=== PATIENT | male | born 1985 | race Hispanic/Latino ===

== ENCOUNTER 2019-06-29 07:46 | Inpatient (IN) | payer SELFPAY ==
[~2019-06-29] VITALS: Ht 170.2 cm; Wt 101.6 kg
[2019-06-29] MEDS ORDERED: ONDANSETRON HCL 4 MG/2 ML VIAL ONE (08:47)
[2019-06-29] MEDS ORDERED: MORPHINE SULFATE 4 MG/1ML SYG ONE ×2 (08:47→13:06)
[2019-06-29] MEDS ORDERED: SODIUM CHLORIDE 0.9% 1000ML 1,000 ML IV ONE ×2 (08:48→13:38)
[2019-06-29 09:06] LABS: BASOPHILS % (AUTO) 0.6 % (0.0-5.0); EOSINOPHILS % (AUTO) 3.9 % (0.0-8.0); LYMPHOCYTES % (AUTO) 23.6 % (21.0-51.0); MEAN CORPUSCULAR HEMOGLOBIN 30.7 pg (27.0-33.0); MEAN CORPUSCULAR HGB CONC 35.6 g/dL (32.0-36.0); MEAN CORPUSCULAR VOLUME 86.3 fL (79-99); MONOCYTES % (AUTO) 10.5 % (3.0-13.0); NEUTROPHILS % (AUTO) 61.4 % (40.0-77.0); NUCLEATED RED BLOOD CELLS 0.1 % (0.0-0.19); PLATELET COUNT (AUTO) 285 K/uL (130-400); RED BLOOD CELL COUNT(AUTO) 4.86 MIL/uL (4.50-6.20); RED CELL DISTRIBUTION WIDTH 12.9 % (11.0-15.5); WHITE BLOOD COUNT (AUTO) 8.6 K/uL (4.8-10.8)
[2019-06-29 09:18] LABS: INR 0.99 (0.85-1.15); PARTIAL THROMBOPLASTIN TIME 25.6 SEC (26.3-35.5); POTASSIUM 3.3 mmol/L (3.5-5.1); PROTHROMBIN TIME 10.4 SEC (9.6-11.6)
[2019-06-29 09:24] LABS: ALBUMIN 3.7 g/dL (3.5-5.0); BILIRUBIN,TOTAL 0.4 mg/dL (0.2-1.0); CRP QUANTITATIVE 3.6 mg/L (0.00-9.0); TOTAL PROTEIN, SERUM 7.6 g/dL (6.0-8.3)
[2019-06-29 11:23] LABS: ERYTHROCYTE SEDIMENTATION RATE 6 MM/HR (0-15)
[2019-06-29] MEDS ORDERED: IOHEXOL-350 75 ML VIAL IV ONE (11:24)
[2019-06-29] MEDS ORDERED: ZOSYN 3.375GM+NS 50ML 50 ML IV ONE (13:38)
[2019-06-29] MEDS ORDERED: VANCOMYCIN 1GM+NS 250ML 500 ML IV ONE (14:06)
[2019-06-29] MEDS ORDERED: VANCOMYCIN PROTOCOL PER PHARMACY IV SCH (16:15)
[2019-06-29] MEDS ORDERED: POTASSIUM CHLORIDE 20MEQ/100ML 100 ML IV PRN (16:30)
[2019-06-29] MEDS ORDERED: POTASSIUM CHLORIDE 10% ELIXIR 20 MEQ/15 ML UDCUP PO PRN (16:30)
[2019-06-29] MEDS ORDERED: ONDANSETRON HCL 4 MG/2 ML VIAL IV PRN (16:30)
[2019-06-29] MEDS ORDERED: LIDOCAINE HCL-MPF 1% 2ML VIAL IV PRN (16:30)
[2019-06-29] MEDS ORDERED: HYDROCODONE/ACETAMINOPHEN 5/325 MG TAB PO PRN (16:30)
[2019-06-29] MEDS ORDERED: ACETAMINOPHEN 325 MG TAB PO PRN (16:30)
[2019-06-29 17:30] VITALS: BP 157/92
[2019-06-29 19:30] VITALS: BP 137/66
[2019-06-29] MEDS ORDERED: COMPOUND IV REFRIGERATED 1 EACH IVSOLN MISC PRN (21:00)
[2019-06-29] MEDS: ZOSYN 3.375GM+NS 50ML 50 ML IV SCH (21:50)
[2019-06-29] MEDS: VANCOMYCIN 1.5 GM in SODIUM CHLORIDE 0.9% 250 ML IV SCH (21:50)
[2019-06-29] MEDS: POTASSIUM CHLORIDE 20 MEQ ERTAB PO PRN ×2 (21:51→22:56)
[2019-06-29] MEDS: FAMOTIDINE 20MG TAB 20 MG TAB PO SCH (21:51)
[2019-06-29 23:30] VITALS: BP 132/84
[2019-06-30] MEDS: POTASSIUM CHLORIDE 20 MEQ ERTAB PO PRN ×5 (00:12→15:09)
[2019-06-30 04:03] VITALS: BP 107/51
[2019-06-30] MEDS: ZOSYN 3.375GM+NS 50ML 50 ML IV SCH ×3 (05:53→20:39)
[2019-06-30 06:03] LABS: BASOPHILS % (AUTO) 0.5 % (0.0-5.0); EOSINOPHILS % (AUTO) 4.9 % (0.0-8.0); HEMATOCRIT 38.3 % (42-54); LYMPHOCYTES % (AUTO) 21.5 % (21.0-51.0); MEAN CORPUSCULAR HEMOGLOBIN 30.5 pg (27.0-33.0); MEAN CORPUSCULAR HGB CONC 35.2 g/dL (32.0-36.0); MEAN CORPUSCULAR VOLUME 86.7 fL (79-99); MONOCYTES % (AUTO) 10.5 % (3.0-13.0); NEUTROPHILS % (AUTO) 62.6 % (40.0-77.0); PLATELET COUNT (AUTO) 256 K/uL (130-400); RED BLOOD CELL COUNT(AUTO) 4.41 MIL/uL (4.50-6.20); RED CELL DISTRIBUTION WIDTH 13.1 % (11.0-15.5); WHITE BLOOD COUNT (AUTO) 8.1 K/uL (4.8-10.8)
[2019-06-30 06:12] LABS: POTASSIUM 3.3 mmol/L (3.5-5.1)
[2019-06-30 07:30] VITALS: BP 104/66
[2019-06-30] MEDS: FAMOTIDINE 20MG TAB 20 MG TAB PO SCH ×2 (09:00→20:35)
[2019-06-30] MEDS: VANCOMYCIN 1.5 GM in SODIUM CHLORIDE 0.9% 250 ML IV SCH ×2 (09:00→20:35)
[2019-06-30] MEDS: ENOXAPARIN SODIUM 30 MG/0.3 ML SQ SCH (09:01)
--- NOTE | 2019-06-30 10:51 | NUR ---
DCP CM met with pt discussed dc plans. Pt is independent prior to admission, lives at home alone, girlfriend lives close by. Denies any equipments/services. Feels safe to go back home, still drives and works, girlfriend able to assist with transportation as necessary. DC plan to home once stable. CM to cont to follow up. Addendum: 06/30/19 at 1052 by JOSTIN CHAVEZ LVN CM Amended: Links added.
[2019-06-30 11:00] VITALS: BP 114/65
[2019-06-30] MEDS ORDERED: MAGNESIUM 2GM PREMIX 50ML 50 ML IV PRN (12:45)
[2019-06-30 16:00] VITALS: BP 122/68
[2019-06-30 21:05] VITALS: BP 139/74
[2019-07-01] VITALS: BP 124/69
[2019-07-01 04:10] VITALS: BP 121/64
[2019-07-01 04:31] LABS: EOSINOPHILS % (AUTO) 5.1 % (0.0-8.0); HEMATOCRIT 39.9 % (42-54); LYMPHOCYTES % (AUTO) 24.9 % (21.0-51.0); MEAN CORPUSCULAR HEMOGLOBIN 29.9 pg (27.0-33.0); MEAN CORPUSCULAR HGB CONC 34.6 g/dL (32.0-36.0); MEAN CORPUSCULAR VOLUME 86.5 fL (79-99); MONOCYTES % (AUTO) 9.1 % (3.0-13.0); NEUTROPHILS % (AUTO) 59.9 % (40.0-77.0); PLATELET COUNT (AUTO) 274 K/uL (130-400); RED BLOOD CELL COUNT(AUTO) 4.61 MIL/uL (4.50-6.20); RED CELL DISTRIBUTION WIDTH 12.7 % (11.0-15.5)
[2019-07-01 04:53] LABS: CREATININE 1.1 mg/dL (0.5-1.5); POTASSIUM 3.7 mmol/L (3.5-5.1)
[2019-07-01] MEDS: ZOSYN 3.375GM+NS 50ML 50 ML IV SCH ×2 (05:41→13:08)
[2019-07-01 08:00] VITALS: BP 121/47
[2019-07-01] MEDS: VANCOMYCIN 1.5 GM in SODIUM CHLORIDE 0.9% 250 ML IV SCH (09:06)
[2019-07-01] MEDS: ENOXAPARIN SODIUM 30 MG/0.3 ML SQ SCH (09:07)
[2019-07-01] MEDS: FAMOTIDINE 20MG TAB 20 MG TAB PO SCH (09:07)
[2019-07-01] MEDS ORDERED: VANCOMYCIN 1.75 GM in SODIUM CHLORIDE 0.9% 250 ML IV SCH (10:27)
[2019-07-01 11:29] VITALS: BP 131/74
[2019-07-01 16:00] VITALS: BP 127/61
--- NOTE | 2019-07-01 20:06 | NUR ---
Pt d/c home safely Pt d/c home safely with po 500mg cephalexin for 7days, pt to follow up with Dr. Good in one week, Pt self referral and provided a list of PCP to follow up with PCP of choice, Pt PIV taken off with no complication noted, Pt provided a prescription script, pt verbalized understanding of d/c instruction, all questions and concerns addressed.
== END 2019-07-01 18:25 | disposition home or self-care (01) | DRG 603 ==
LOC: EDH 07:46 → EDHIP 07:47 → 3BH 17:39
PROVIDERS: ADMIT Family Medicine; ATTEND Family Medicine
DX: L03.115 Cellulitis of right lower limb (principal); E66.9 Obesity, unspecified; E87.6 Hypokalemia; Z68.35 Body mass index [BMI] 35.0-35.9, adult
CPT/HCPCS: 36415; 73701; 80048; 80053; 80202; 82550; 83605; 83735; 85025; 85610; 85651; 85730; 86140; 87040; 93005; 93971; G0378; J1650; J2270; J2405; J2543; J3370; J7030; Q9967